=== PATIENT | female | born 1970 | race Caucasian/White ===

== ENCOUNTER 2021-07-04 11:40 | Observation (INO) | payer BC ==
[2021-07-04 13:26] LABS: BASO % 0.4 % (0-2.0); EOS % 1.1 % (0-4.5); LYMPH % 16.9 % (8-40); MCH 26.2 pg (25.7-33.7); MEAN PLT VOLUME 9.1 fl (7.5-11.1); MONO % 5.8 % (3.8-10.2); NEUT % 75.8 % (42.8-82.8); PLATELET COUNT 274 10^3/uL (134-434); RBC 2.56 M/mm3 (3.60-5.2); RDW 16.3 % (11.6-15.6); WHITE BLOOD COUNT 6.7 K/mm3 (4.0-10.0)
[2021-07-04 13:28] LABS: INR 1.13 (0.83-1.09)
[2021-07-04 13:29] LABS: HEMOGLOBIN 6.7 GM/dL (10.7-15.3)
[2021-07-04 13:31] LABS: ACTIVATED PTT 28.7 SECONDS (25.2-36.5)
[2021-07-04 13:43] LABS: CALCIUM 8.7 mg/dL (8.5-10.1)
[2021-07-04 13:44] LABS: ALBUMIN 3.4 g/dl (3.4-5.0); BLOOD UREA NITROGEN 8.7 mg/dL (7-18)
[2021-07-04 13:47] LABS: CREATININE 0.8 mg/dL (0.55-1.3)
[2021-07-04 13:48] LABS: BILIRUBIN,TOTAL 0.2 mg/dL (0.2-1); TOT PROT 6.5 g/dl (6.4-8.2)
[2021-07-04 14:15] LABS: URINE APPEARANCE CLEAR; URINE BILIRUBIN NEGATIVE (NEGATIVE); URINE COLOR RED; URINE GLUCOSE (UA) NEGATIVE (NEGATIVE); URINE KETONE NEGATIVE (NEGATIVE); URINE LEUK ESTERASE TRACE (NEGATIVE); URINE NITRITE NEGATIVE (NEGATIVE); URINE PROTEIN 2+ (NEGATIVE); URINE UROBILINOGEN 0.2 mg/dL (0.2-1.0)
[2021-07-04 14:30] LABS: EPI CELLS 26.7 /uL (0-25.1); HYALINE CASTS 0.51 /uL (0-3.1); URINE BACTERIA 58.1 /uL (0-1359); URINE RBC 168.3 /uL (0-23.9); URINE WBC 35.2 /uL (0-25.8); YEAST NO SEEN (NEGATIVE)
[2021-07-04 23:18] VITALS: BMI 27.3
[2021-07-05] MEDS ORDERED: FAMOTIDINE 20 MG/50 ML IVPB 20 MG/50 ML MG IVPB ONE (07:53)
[2021-07-05] MEDS ORDERED: IRON SUCROSE INJECTION 300 MG in SODIUM CHLORIDE 250 ML IVPB ONE (07:53)
[2021-07-05] MEDS ORDERED: ACETAMINOPHEN 325 MG TABLET (FP) PO PRN (07:53)
[2021-07-05] MEDS ORDERED: DEXTROSE 5%-NORMAL SALINE 1,000 ML IV SCH (08:00)
[2021-07-05] MEDS ORDERED: ONDANSETRON *ODT* 4 MG TABLET SL PRN (08:04)
[2021-07-05 11:19] LABS: HEMATOCRIT 23.1 % (32.4-45.2); HEMOGLOBIN 7.5 GM/dL (10.7-15.3); MCH 26.9 pg (25.7-33.7); MCHC 32.6 g/dl (32.0-36.0); MEAN CELL VOLUME 82.3 fl (80-96); MEAN PLT VOLUME 8.3 fl (7.5-11.1); PLATELET COUNT 232 10^3/uL (134-434); RBC 2.81 M/mm3 (3.60-5.2); RDW 15.7 % (11.6-15.6); WHITE BLOOD COUNT 5.3 K/mm3 (4.0-10.0)
[2021-07-05 11:45] LABS: IRON SERUM 60 ug/dL (50-175)
[2021-07-05 11:48] LABS: TOTAL IRON BINDING CAPACITY 345 ug/dL (250-450)
[2021-07-05] MEDS ORDERED: ONDANSETRON 4 MG/2 ML VIAL IVPUSH PRN ×2 (12:31→12:42)
[2021-07-05] MEDS ORDERED: oxyCODONE HCL 5 MG TABLET PO PRN ×2 (12:31→12:42)
[2021-07-05] MEDS ORDERED: PROPOFOL 20 ML ONE ×2 (12:34)
[2021-07-05] MEDS ORDERED: MIDAZOLAM HCL 2 MG/2 ML SINGLE DOSE VIAL ONE (12:34)
[2021-07-05] MEDS ORDERED: IBUPROFEN 800 MG/8 ML IJ IVPB PRN (12:42)
[2021-07-05] MEDS ORDERED: IBUPROFEN 600 MG TABLET (FP) PO PRN (12:42)
[2021-07-05] MEDS ORDERED: LACTATED RINGERS SOLUTION 1,000 ML IV SCH (12:45)
[2021-07-05] MEDS ORDERED: ELECTROLYTE-148 SOLN 1,000 ML IV SCH (12:45)
[2021-07-05 18:09] VITALS: BP 107/65; PULSE 74; TEMP 98
== END 2021-07-05 18:00 | disposition home or self-care (01) ==
LOC: JER 11:40 → JERBED 14:28 → UNDOADMOB 14:28 → INTOOBSV 14:28 → J7W 21:25 → JERBED 21:25 → J7W 07-05 13:45
PROVIDERS: ADMIT Obstetrics & Gynecology; ATTEND Obstetrics & Gynecology
PROC: 3E033GC Introduction of Other Therapeutic Substance into Peripheral Vein, Percutaneous Approach (ICD-10-PCS; principal; 2021-07-05 14:30)
PROC: 0UJD8ZZ Inspection of Uterus and Cervix, Via Natural or Artificial Opening Endoscopic (ICD-10-PCS; 2021-07-05 14:30)
DX: N93.9 Abnormal uterine and vaginal bleeding, unspecified (principal); N92.1 Excessive and frequent menstruation with irregular cycle; D64.9 Anemia, unspecified; N80.0 Endometriosis of uterus; Z29.9 Encounter for prophylactic measures, unspecified
CPT/HCPCS: 36415; 36430; 71046-TC-FY; 80053; 81003; 83540; 83550; 85025; 85027; 85610; 85730; 86850; 86900; 86901; 86922; 87086; 88305-TC; 93005; 93010; 94760; 96365; 96367; 96375; 99285-25; C9803; G0378; J1756; P9058; U0003; U0005

== ENCOUNTER 2021-10-12 04:12 | Inpatient (IN) | payer BC ==
[2021-10-12] MEDS ORDERED: MIDAZOLAM HCL 2 MG/2 ML SINGLE DOSE VIAL ONE (07:18)
[2021-10-12] MEDS ORDERED: PROPOFOL 20 ML ONE ×4 (07:18→13:28)
[2021-10-12] MEDS ORDERED: SUCCINYLCHOLINE CHLORIDE 200 MG/10 ML SYRINGE ONE (07:38)
[2021-10-12] MEDS ORDERED: HYDROmorphone HCl 2 MG/ML VIAL ONE (08:41)
[2021-10-12] MEDS ORDERED: ceFAZolin SODIUM 1 GM VIAL ONE ×2 (08:43→12:46)
[2021-10-12] MEDS ORDERED: DEXAMETHASONE SOD PHOSPHATE 4 MG/1 ML VIAL ONE ×3 (08:43→13:21)
[2021-10-12] MEDS ORDERED: ONDANSETRON 4 MG/2 ML VIAL ONE ×3 (08:43→13:21)
[2021-10-12] MEDS ORDERED: ceFAZolin SODIUM 1 GM VIAL IVPB ONE ×2 (09:00→12:50)
[2021-10-12] MEDS ORDERED: BUPIVACAINE HCL/PF 0.5% (5MG/ML) 10 ML VIAL IJ ONE (09:13)
[2021-10-12] MEDS ORDERED: LIDOCAINE 1%/EPI 1:100000 (20 ML MULTI DOSE VIAL) IJ ONE (09:13)
[2021-10-12] MEDS ORDERED: MICROFIBRILLAR COLLAGEN 1 GM EACH TP ONE (11:44)
[2021-10-12] MEDS ORDERED: SEVOFLURANE 250 ML BTL ONE (12:25)
[2021-10-12] MEDS ORDERED: LIDOCAINE HCL/PF 2% SDV 5ML VIAL ONE (13:24)
[2021-10-12] MEDS ORDERED: PROMETHAZINE HCL 25 MG/1 ML VIAL ONE (14:35)
[2021-10-12] MEDS ORDERED: ONDANSETRON 4 MG/2 ML VIAL IVPUSH PRN ×2 (14:43→16:25)
[2021-10-12] MEDS: HALOPERIDOL LACTATE 5 MG/ML IM ONE ×2 (14:43→15:00)
[2021-10-12] MEDS ORDERED: oxyCODONE HCL 5 MG TABLET PO PRN (14:43)
[2021-10-12] MEDS ORDERED: LACTATED RINGERS SOLUTION 1,000 ML IV SCH (14:45)
[2021-10-12] MEDS ORDERED: morphine SULFATE 4 MG/ML VIAL IVPUSH PRN (14:56)
[2021-10-12 16:08] LABS: HEMATOCRIT 38.7 % (32.4-45.2); HEMOGLOBIN 12.3 GM/dL (10.7-15.3); MCH 26.1 pg (25.7-33.7); MCHC 31.7 g/dl (32.0-36.0); MEAN CELL VOLUME 82.2 fl (80-96); MEAN PLT VOLUME 10.5 fl (7.5-11.1); PLATELET COUNT 188 10^3/uL (134-434); RDW 18.8 % (11.6-15.6); WHITE BLOOD COUNT 17.7 K/mm3 (4.0-10.0)
[2021-10-12] MEDS ORDERED: PROMETHAZINE HCL 25 MG/1 ML VIAL IVPB ONE (16:25)
[2021-10-12 16:35] LABS: CALCIUM 8.8 mg/dL (8.5-10.1); MAGNESIUM 1.9 mg/dL (1.8-2.4)
[2021-10-12 16:39] LABS: PHOSPHOROUS 4.3 mg/dL (2.5-4.9)
[2021-10-12] MEDS ORDERED: METOCLOPRAMIDE HCL INJECTION 10 MG/2 ML VIAL IVPUSH ONE (16:45)
[2021-10-12] MEDS ORDERED: CEFAZOLIN 1 GM in DEXTROSE 5%-WATER - 50 ML IVPB SCH (17:00)
[2021-10-12] MEDS: ACETAMINOPHEN 1000 MG/100 ML BAG IVPB SCH ×2 (17:05→22:08)
[2021-10-12] MEDS ORDERED: ACETAMINOPHEN INJECTION 100 ML IVPB ONE (17:06)
[2021-10-12 17:26] LABS: CHLORIDE 110 mmol/L (98-107); SODIUM 142 mmol/L (136-145)
[2021-10-12 17:28] LABS: ANION GAP 11 MMOL/L (8-16); BLOOD UREA NITROGEN 9.1 mg/dL (7-18); CO2 22 mmol/L (21-32); GLUCOSE,RANDOM 193 mg/dL (74-106)
[2021-10-12] MEDS ORDERED: SCOPOLAMINE HYDROBROMIDE 1 PATCH PATCH.TD72 TD SCH (17:30)
[2021-10-12] MEDS ORDERED: DEXAMETHASONE SOD PHOSPHATE 10 MG/1 ML VIAL ONE (17:30)
[2021-10-12 17:34] LABS: ANISOCYTOSIS 2+; MACROCYTOSIS 1+; PLATELET ESTIMATE NORMAL
[2021-10-12] MEDS ORDERED: CALCIUM GLUCONATE 10% - 1,000 MG/10 ML VIAL IVPB SCH (18:00)
[2021-10-12] MEDS ORDERED: CALCIUM GLUC IN NACL, ISO-OSM 2 GM/100 ML BAG IVPB SCH (18:00)
[2021-10-12] MEDS ORDERED: CALCITRIOL 0.25 MCG CAPSULE (FP) PO SCH ×2 (18:00)
[2021-10-12] MEDS: DEXAMETHASONE SOD PHOSPHATE 10 MG/1 ML VIAL IVPUSH SCH ×2 (18:00→22:10)
[2021-10-12] MEDS ORDERED: LACTATED RINGERS SOLUTION 1,000 ML/1,000 ML INFUS.BAG IV SCH (18:15)
[2021-10-12 18:39] VITALS: BMI 28.6
[2021-10-12] MEDS: CALCIUM GLUCONATE IN NACL 1 GM/50 ML BAG IVPB SCH (19:06)
[2021-10-12] MEDS: FAMOTIDINE 20 MG/50 ML IVPB 20 MG/50 ML MG IVPB SCH ×2 (19:07→22:10)
[2021-10-12] MEDS ORDERED: CHLORHEXIDINE GLUCONATE 4% CLEANSER FOR DECOLONIZATION TP SCH (22:00)
[2021-10-12] MEDS: MUPIROCIN 2% TOPICAL OINTMENT FOR DECOLONIZATION NS SCH (22:11)
[2021-10-12 22:36] LABS: PH,URINE 6.5 (5.0-8.0); URINE APPEARANCE CLEAR; URINE BILIRUBIN NEGATIVE (NEGATIVE); URINE COLOR YELLOW; URINE GLUCOSE (UA) 2+ (NEGATIVE); URINE KETONE 2+ (NEGATIVE); URINE LEUK ESTERASE NEGATIVE (NEGATIVE); URINE NITRITE NEGATIVE (NEGATIVE); URINE PROTEIN NEGATIVE (NEGATIVE); URINE UROBILINOGEN 0.2 mg/dL (0.2-1.0)
[2021-10-13] MEDS: CALCIUM GLUCONATE IN NACL 1 GM/50 ML BAG IVPB SCH (01:28)
[2021-10-13] MEDS: DEXAMETHASONE SOD PHOSPHATE 10 MG/1 ML VIAL IVPUSH SCH ×3 (01:28→17:59)
[2021-10-13] MEDS: ACETAMINOPHEN 1000 MG/100 ML BAG IVPB SCH (05:50)
[2021-10-13 06:46] LABS: HEMATOCRIT 40.1 % (32.4-45.2); MCH 26.4 pg (25.7-33.7); MCHC 32.4 g/dl (32.0-36.0); MEAN CELL VOLUME 81.4 fl (80-96); MEAN PLT VOLUME 9.9 fl (7.5-11.1); PLATELET COUNT 176 10^3/uL (134-434); RBC 4.93 M/mm3 (3.60-5.2); RDW 18.8 % (11.6-15.6); WHITE BLOOD COUNT 14.9 K/mm3 (4.0-10.0)
[2021-10-13 07:05] LABS: BLOOD UREA NITROGEN 8.4 mg/dL (7-18); MAGNESIUM 1.8 mg/dL (1.8-2.4)
[2021-10-13 07:08] LABS: CREATININE 0.7 mg/dL (0.55-1.3); PHOSPHOROUS 4.2 mg/dL (2.5-4.9)
[2021-10-13 09:47] LABS: ANISOCYTOSIS 1+; MACROCYTOSIS 0
[2021-10-13] MEDS ORDERED: CALCITRIOL 0.25 MCG CAPSULE (FP) PO SCH ×2 (10:00→11:00)
[2021-10-13] MEDS: MUPIROCIN 2% TOPICAL OINTMENT FOR DECOLONIZATION NS SCH (10:10)
[2021-10-13] MEDS: FAMOTIDINE 20 MG/50 ML IVPB 20 MG/50 ML MG IVPB SCH ×2 (10:46→22:15)
[2021-10-13] MEDS ORDERED: CALCIUM CARBONATE 650 MG TABLET PO SCH (14:00)
[2021-10-13] MEDS ORDERED: oxyCODONE HCL 5 MG TABLET PO PRN (14:58)
[2021-10-13] MEDS ORDERED: ACETAMINOPHEN 500 MG TABLET (FP) PO PRN ×2 (14:59→19:22)
[2021-10-13] MEDS: CALCIUM CARBONATE 650 MG TABLET PO SCH ×2 (15:00→22:15)
[2021-10-13] MEDS ORDERED: ONDANSETRON 4 MG/2 ML VIAL IVPUSH PRN (19:22)
[2021-10-13] MEDS ORDERED: MUPIROCIN 2% TOPICAL OINTMENT FOR DECOLONIZATION NS SCH (22:00)
[2021-10-13] MEDS ORDERED: CHLORHEXIDINE GLUCONATE 4% CLEANSER FOR DECOLONIZATION TP SCH (22:00)
[2021-10-13] MEDS: CALCITRIOL 0.25 MCG CAPSULE (FP) PO SCH (22:15)
[2021-10-14] MEDS: DEXAMETHASONE SOD PHOSPHATE 10 MG/1 ML VIAL IVPUSH SCH ×3 (01:49→17:53)
[2021-10-14] MEDS: CALCIUM CARBONATE 650 MG TABLET PO SCH ×3 (06:21→21:18)
[2021-10-14 08:52] LABS: HEMATOCRIT 41.5 % (32.4-45.2); HEMOGLOBIN 13.4 GM/dL (10.7-15.3); MCH 26.2 pg (25.7-33.7); MCHC 32.3 g/dl (32.0-36.0); MEAN CELL VOLUME 81.1 fl (80-96); MEAN PLT VOLUME 10.2 fl (7.5-11.1); PLATELET COUNT 218 10^3/uL (134-434); RBC 5.11 M/mm3 (3.60-5.2); WHITE BLOOD COUNT 19.1 K/mm3 (4.0-10.0)
[2021-10-14 09:16] LABS: CALCIUM 8.4 mg/dL (8.5-10.1)
[2021-10-14 09:17] LABS: BLOOD UREA NITROGEN 15.6 mg/dL (7-18)
[2021-10-14 09:20] LABS: CREATININE 0.9 mg/dL (0.55-1.3)
[2021-10-14] MEDS ORDERED: LEVOTHYROXINE NA 112 MCG TABLET (FP) PO SCH (10:45)
[2021-10-14] MEDS: LEVOTHYROXINE NA 112 MCG TABLET (FP) PO SCH (10:56)
[2021-10-14] MEDS: CALCITRIOL 0.25 MCG CAPSULE (FP) PO SCH ×2 (10:57→21:18)
[2021-10-14] MEDS: FAMOTIDINE 20 MG/50 ML IVPB 20 MG/50 ML MG IVPB SCH ×2 (10:58→21:17)
[2021-10-14 12:44] LABS: HEMATOCRIT 42.6 % (32.4-45.2); HEMOGLOBIN 13.7 GM/dL (10.7-15.3); MCH 26.1 pg (25.7-33.7); MCHC 32.1 g/dl (32.0-36.0); MEAN CELL VOLUME 81.3 fl (80-96); MEAN PLT VOLUME 9.8 fl (7.5-11.1); PLATELET COUNT 216 10^3/uL (134-434); RBC 5.23 M/mm3 (3.60-5.2); RDW 19.3 % (11.6-15.6); WHITE BLOOD COUNT 18.9 K/mm3 (4.0-10.0)
[2021-10-14 13:20] LABS: BLOOD UREA NITROGEN 16.4 mg/dL (7-18); CALCIUM 8.3 mg/dL (8.5-10.1)
[2021-10-14 13:23] LABS: CREATININE 0.8 mg/dL (0.55-1.3)
[2021-10-15] MEDS: DEXAMETHASONE SOD PHOSPHATE 10 MG/1 ML VIAL IVPUSH SCH ×2 (01:32→09:44)
[2021-10-15] MEDS: CALCIUM CARBONATE 650 MG TABLET PO SCH ×2 (05:39→14:12)
[2021-10-15] MEDS: LEVOTHYROXINE NA 112 MCG TABLET (FP) PO SCH (06:08)
[2021-10-15 08:19] LABS: HEMATOCRIT 42.2 % (32.4-45.2); HEMOGLOBIN 13.9 GM/dL (10.7-15.3); MCH 26.9 pg (25.7-33.7); MCHC 32.9 g/dl (32.0-36.0); MEAN CELL VOLUME 81.7 fl (80-96); MEAN PLT VOLUME 10.3 fl (7.5-11.1); PLATELET COUNT 227 10^3/uL (134-434); RBC 5.16 M/mm3 (3.60-5.2); RDW 18.9 % (11.6-15.6); WHITE BLOOD COUNT 14.3 K/mm3 (4.0-10.0)
[2021-10-15 08:30] LABS: CALCIUM 8.1 mg/dL (8.5-10.1)
[2021-10-15 08:31] LABS: BLOOD UREA NITROGEN 15.8 mg/dL (7-18)
[2021-10-15 08:34] LABS: CREATININE 0.8 mg/dL (0.55-1.3)
[2021-10-15] MEDS: CALCITRIOL 0.25 MCG CAPSULE (FP) PO SCH (09:44)
[2021-10-15] MEDS: FAMOTIDINE 20 MG/50 ML IVPB 20 MG/50 ML MG IVPB SCH (09:44)
[2021-10-15 11:08] VITALS: BP 120/79; PULSE 70; TEMP 98.2
[2021-10-15] MEDS ORDERED: SCOPOLAMINE HYDROBROMIDE 1 PATCH PATCH.TD72 TD SCH (17:30)
== END 2021-10-15 15:06 | disposition home or self-care (01) | DRG 626 ==
LOC: JASU-SURG 04:12 → J2C 14:29 → JICU 18:54 → J8W 10-13 19:00
PROVIDERS: ADMIT Surgery; ATTEND Surgery
PROC: 07T20ZZ Resection of Left Neck Lymphatic, Open Approach (ICD-10-PCS; 2021-10-12)
PROC: 0GTK0ZZ Resection of Thyroid Gland, Open Approach (ICD-10-PCS; principal; 2021-10-12 08:00)
DX: C73 Malignant neoplasm of thyroid gland (principal); C79.89 Secondary malignant neoplasm of other specified sites; E83.51 Hypocalcemia
CPT/HCPCS: 36415; 36430; 71045-TC-FY; 80048; 81003; 82550; 82553; 83036; 83735; 84100; 84484; 85025; 85027; 86922; 87040; 87086; 88305-TC; 88307-TC; 88331-TC; 93005; 93010; 94760; 97116-GP; 97162-GP; J1100

== ENCOUNTER 2021-10-17 20:33 | Observation (INO) | payer BC ==
[2021-10-17 20:43] VITALS: BMI 27.4
[2021-10-17] MEDS ORDERED: LACTATED RINGERS SOLUTION 1000 ML INFUS.BAG IV ONE (21:28)
[2021-10-17] MEDS ORDERED: ONDANSETRON 4 MG/2 ML VIAL IVPB ONE (22:16)
[2021-10-17] MEDS ORDERED: ONDANSETRON 4 MG/2 ML VIAL ONE ×2 (22:29→23:55)
[2021-10-17 22:49] LABS: BASO % 0.1 % (0-2.0); EOS % 0.3 % (0-4.5); HEMATOCRIT 49.3 % (32.4-45.2); HEMOGLOBIN 15.9 GM/dL (10.7-15.3); LYMPH % 9.5 % (8-40); MCHC 32.3 g/dl (32.0-36.0); MEAN CELL VOLUME 80.5 fl (80-96); MEAN PLT VOLUME 9.4 fl (7.5-11.1); MONO % 7.7 % (3.8-10.2); NEUT % 82.4 % (42.8-82.8); PLATELET COUNT 309 10^3/uL (134-434); RBC 6.12 M/mm3 (3.60-5.2); RDW 18.4 % (11.6-15.6); WHITE BLOOD COUNT 15.2 K/mm3 (4.0-10.0)
[2021-10-17 22:59] LABS: INR 1.25 (0.83-1.09); PROTHROMBIN TIME (PATIENT) 14.4 SEC (9.7-13.0)
[2021-10-17 23:01] LABS: ACTIVATED PTT 28.1 SECONDS (25.2-36.5)
[2021-10-17 23:17] LABS: ALBUMIN 2.5 g/dl (3.4-5.0); CALCIUM 9.3 mg/dL (8.5-10.1)
[2021-10-17 23:18] LABS: BLOOD UREA NITROGEN 15.8 mg/dL (7-18)
[2021-10-17 23:22] LABS: BILIRUBIN,TOTAL 0.5 mg/dL (0.2-1); TOT PROT 6.3 g/dl (6.4-8.2)
[2021-10-18] MEDS ORDERED: LACTATED RINGERS SOLUTION 1,000 ML/1,000 ML INFUS.BAG IV SCH (00:15)
[2021-10-18] MEDS ORDERED: SODIUM CHLORIDE 1,000 ML IV SCH (00:15)
[2021-10-18] MEDS ORDERED: ACETAMINOPHEN 325 MG TABLET (FP) PO PRN (00:50)
[2021-10-18] MEDS ORDERED: POLYETHYLENE GLYCOL (HEALTHYLAX) 3350 17 GM PACKET PO PRN (00:50)
[2021-10-18] MEDS ORDERED: ONDANSETRON 4 MG/2 ML VIAL IVPUSH PRN (01:03)
[2021-10-18] MEDS ORDERED: ONDANSETRON 4 MG/2 ML VIAL ONE (02:22)
[2021-10-18] MEDS ORDERED: DEXTROSE 5%-NORMAL SALINE 1,000 ML IV SCH (07:30)
[2021-10-18] MEDS ORDERED: LEVOTHYROXINE NA 112 MCG TABLET (FP) PO SCH (07:45)
[2021-10-18] MEDS ORDERED: LEVOTHYROXINE NA 125 MCG TABLET (FP) PO ONE (08:15)
[2021-10-18] MEDS ORDERED: LEVOTHYROXINE NA 50 MCG TABLET (FP) ONE (08:44)
[2021-10-18] MEDS ORDERED: LEVOTHYROXINE NA 75 MCG TABLET (FP) ONE (08:44)
[2021-10-18] MEDS: CALCITRIOL 0.25 MCG CAPSULE (FP) PO SCH (10:48)
[2021-10-18] MEDS: D5-1/2NS+20 MEQ KCL - 20 MEQ/1,000 ML INFUS.BAG IV SCH (10:48)
[2021-10-18] MEDS: CALCIUM CARBONATE 650 MG TABLET PO SCH (10:48)
[2021-10-18] MEDS ORDERED: PANTOPRAZOLE SODIUM 40 MG VIAL ONE (11:01)
[2021-10-18] MEDS: PANTOPRAZOLE SODIUM 40 MG VIAL IVPUSH SCH (11:17)
[2021-10-18 11:19] LABS: BASO % 0.1 % (0-2.0); EOS % 0.5 % (0-4.5); HEMATOCRIT 42.1 % (32.4-45.2); HEMOGLOBIN 13.9 GM/dL (10.7-15.3); LYMPH % 14.1 % (8-40); MCH 26.9 pg (25.7-33.7); MCHC 33.1 g/dl (32.0-36.0); MEAN CELL VOLUME 81.4 fl (80-96); MEAN PLT VOLUME 9.5 fl (7.5-11.1); MONO % 8.3 % (3.8-10.2); PLATELET COUNT 251 10^3/uL (134-434); RBC 5.18 M/mm3 (3.60-5.2); RDW 18.4 % (11.6-15.6)
[2021-10-18 11:46] LABS: ALBUMIN 2.3 g/dl (3.4-5.0); BLOOD UREA NITROGEN 10.8 mg/dL (7-18)
[2021-10-18 11:51] LABS: BILIRUBIN,TOTAL 0.4 mg/dL (0.2-1); TOT PROT 5.4 g/dl (6.4-8.2)
[2021-10-18 11:52] LABS: CALCIUM 7.8 mg/dL (8.5-10.1)
[2021-10-19] MEDS: CALCITRIOL 0.25 MCG CAPSULE (FP) PO SCH ×2 (00:55→09:27)
[2021-10-19] MEDS: CALCIUM CARBONATE 650 MG TABLET PO SCH ×2 (00:55→09:28)
[2021-10-19] MEDS: D5-1/2NS+20 MEQ KCL - 20 MEQ/1,000 ML INFUS.BAG IV SCH (03:33)
[2021-10-19] MEDS ORDERED: LEVOTHYROXINE NA 25 MCG TABLET (FP) PO SCH (07:00)
[2021-10-19] MEDS ORDERED: LEVOTHYROXINE NA 112 MCG TABLET (FP) PO SCH ×2 (07:00)
[2021-10-19] MEDS ORDERED: LEVOTHYROXINE NA 25 MCG TABLET (FP) ONE (07:00)
[2021-10-19] MEDS ORDERED: LEVOTHYROXINE 112 MCG, LEVOTHYROXINE 25 MCG PO SCH (07:00)
[2021-10-19] MEDS ORDERED: LEVOTHYROXINE NA 125 MCG TABLET (FP) PO SCH (07:00)
[2021-10-19] MEDS ORDERED: LEVOTHYROXINE NA 112 MCG TABLET (FP) ONE (07:01)
[2021-10-19 08:22] LABS: BASO % 0.2 % (0-2.0); EOS % 2.4 % (0-4.5); HEMATOCRIT 40.6 % (32.4-45.2); HEMOGLOBIN 13.1 GM/dL (10.7-15.3); LYMPH % 12.7 % (8-40); MCH 26.5 pg (25.7-33.7); MCHC 32.2 g/dl (32.0-36.0); MEAN CELL VOLUME 82.5 fl (80-96); MEAN PLT VOLUME 9.4 fl (7.5-11.1); NEUT % 76.7 % (42.8-82.8); PLATELET COUNT 206 10^3/uL (134-434); RBC 4.92 M/mm3 (3.60-5.2); RDW 18.1 % (11.6-15.6); WHITE BLOOD COUNT 9.7 K/mm3 (4.0-10.0)
[2021-10-19 08:32] LABS: CALCIUM 7.2 mg/dL (8.5-10.1)
[2021-10-19 08:33] LABS: BLOOD UREA NITROGEN 6.7 mg/dL (7-18); MAGNESIUM 1.9 mg/dL (1.8-2.4)
[2021-10-19 08:36] LABS: CREATININE 0.8 mg/dL (0.55-1.3); PHOSPHOROUS 4.8 mg/dL (2.5-4.9)
[2021-10-19 09:24] VITALS: BP 122/71; PULSE 83; TEMP 98.4
[2021-10-19] MEDS: PANTOPRAZOLE SODIUM 40 MG VIAL IVPUSH SCH (09:28)
== END 2021-10-19 12:37 | disposition home or self-care (01) ==
LOC: JER 20:33 → JERBED 10-18 00:01 → J6S 10-18 22:46
PROVIDERS: ADMIT Hospitalist; ATTEND Family Medicine
PROC: 3E0337Z Introduction of Electrolytic and Water Balance Substance into Peripheral Vein, Percutaneous Approach (ICD-10-PCS; principal; 2021-10-18)
PROC: 3E033GC Introduction of Other Therapeutic Substance into Peripheral Vein, Percutaneous Approach (ICD-10-PCS; 2021-10-18)
DX: R55 Syncope and collapse (principal); E89.0 Postprocedural hypothyroidism; D64.9 Anemia, unspecified; D72.829 Elevated white blood cell count, unspecified; R07.89 Other chest pain; R00.2 Palpitations; Z85.850 Personal history of malignant neoplasm of thyroid
CPT/HCPCS: 36415; 70450-TC; 71045-TC-FY; 80048; 80053; 82330; 82550; 82728; 83540; 83550; 83735; 84100; 84443; 84484; 85025; 85610; 85730; 86850; 86900; 86901; 87040; 93005; 93010; 96360; 96361; 96374; 99285-25; C9803-CS; G0378; U0003; U0005

== ENCOUNTER 2022-07-21 11:04 | Day surgery (SDC) | payer BC ==
[2022-07-21] MEDS ORDERED: IRON SUCROSE INJECTION 200 MG/100 ML BAG IVPB ONE (11:30)
[2022-07-21 12:22] VITALS: BP 101/71; PULSE 59; RESP 16; TEMP 98.4
== END 2022-07-21 12:24 | disposition home or self-care (01) ==
LOC: FINFUSION 11:04 → FM/S 11:07 → FINFUSION 12:24
PROVIDERS: ATTEND Family Medicine
PROC: 3E033GC Introduction of Other Therapeutic Substance into Peripheral Vein, Percutaneous Approach (ICD-10-PCS; principal; 2022-07-21)
DX: D50.9 Iron deficiency anemia, unspecified (principal)
CPT/HCPCS: 96365; J1756

== ENCOUNTER 2022-07-28 11:37 | Day surgery (SDC) | payer BC ==
[2022-07-28] MEDS ORDERED: IRON SUCROSE INJECTION 200 MG in SODIUM CHLORIDE 100 ML IVPB ONE (12:15)
[2022-07-28 13:02] VITALS: BP 116/63; PULSE 61; RESP 19; TEMP 98.2
== END 2022-07-28 13:03 | disposition home or self-care (01) ==
LOC: FINFUSION 11:37 → FM/S 11:38 → FINFUSION 13:03
PROVIDERS: ATTEND Family Medicine
PROC: 3E033GC Introduction of Other Therapeutic Substance into Peripheral Vein, Percutaneous Approach (ICD-10-PCS; principal; 2022-07-28)
DX: D50.9 Iron deficiency anemia, unspecified (principal)
CPT/HCPCS: 96365; J1756

== ENCOUNTER 2022-08-04 11:23 | Day surgery (SDC) | payer BC ==
[2022-08-04] MEDS ORDERED: IRON SUCROSE INJECTION 200 MG in SODIUM CHLORIDE 100 ML IVPB ONE (12:00)
[2022-08-04 13:19] VITALS: BP 102/70; PULSE 62; RESP 18; TEMP 98.1
== END 2022-08-04 13:20 | disposition home or self-care (01) ==
LOC: FINFUSION 11:23 → FM/S 11:24 → FINFUSION 13:20
PROVIDERS: ATTEND Family Medicine
PROC: 3E033GC Introduction of Other Therapeutic Substance into Peripheral Vein, Percutaneous Approach (ICD-10-PCS; principal; 2022-08-04)
DX: D50.9 Iron deficiency anemia, unspecified (principal)
CPT/HCPCS: 96365; J1756

== ENCOUNTER 2024-02-21 14:58 | Emergency (ER) | payer BC ==
[2024-02-21 15:10] VITALS: RESP 16; BMI 27.9
[2024-02-21 17:50] LABS: HEMATOCRIT 32.8 % (32.4-45.2); MCH 29.8 pg (25.7-33.7); MCHC 33.6 g/dl (32.0-36.0); MEAN CELL VOLUME 88.8 fl (80-96); MEAN PLT VOLUME 8.1 fl (7.5-11.1); PLATELET COUNT 367 10^3/uL (134-434); RDW 13.4 % (11.6-15.6); WHITE BLOOD COUNT 16.1 K/mm3 (4.0-10.0)
[2024-02-21 18:08] LABS: POTASSIUM 4.2 mmol/L (3.5-5.1)
[2024-02-21 18:10] LABS: CALCIUM 7.8 mg/dL (8.5-10.1)
[2024-02-21 18:11] LABS: BLOOD UREA NITROGEN 7.5 mg/dL (7-18)
[2024-02-21 18:14] LABS: CREATININE 0.7 mg/dL (0.55-1.3)
[2024-02-21 18:15] LABS: BILIRUBIN,TOTAL 0.2 mg/dL (0.2-1); EPI CELLS 8 /uL (0-25.1); HYALINE CASTS 1 /uL (0-3.1); PH,URINE 6.5 (5.0-8.0); TOT PROT 7.3 g/dl (6.4-8.2); URINE APPEARANCE CLEAR; URINE BACTERIA 43 /uL (0-1359); URINE BILIRUBIN NEGATIVE (NEGATIVE); URINE COLOR YELLOW; URINE GLUCOSE (UA) NEGATIVE (NEGATIVE); URINE KETONE NEGATIVE (NEGATIVE); URINE LEUK ESTERASE TRACE (NEGATIVE); URINE NITRITE NEGATIVE (NEGATIVE); URINE PROTEIN NEGATIVE (NEGATIVE); URINE RBC 25 /uL (0-23.9); URINE UROBILINOGEN 0.2 mg/dL (0.2-1.0); URINE WBC 7 /uL (0-25.8)
[2024-02-21 19:10] LABS: ANISOCYTOSIS 2+; MACROCYTOSIS 0
[2024-02-21 19:12] VITALS: BP 102/67; PULSE 69; TEMP 98.6
== END 2024-02-21 20:15 | disposition home or self-care (01) ==
LOC: JER 14:58
DX: D72.829 Elevated white blood cell count, unspecified (principal); R21 Rash and other nonspecific skin eruption; R79.9 Abnormal finding of blood chemistry, unspecified
CPT/HCPCS: 36415; 71046-TC-FY; 80053; 81003; 85025; 87086; 99284-25